=== PATIENT | female | born 1975 | race Two or more races ===

== ENCOUNTER 2018-02-24 09:36 | Emergency (ER) | payer BC ==
[~2018-02-24] VITALS: Ht 162.6 cm; Wt 72.6 kg
[~2018-02-24 09:36] MED LIST: PREN1TAB49 PO
[2018-02-24 09:40] VITALS: BP_SYST 156
[2018-02-24] MEDS ORDERED: ASPIRIN 325 MG TABLET PO ONE (09:45)
[2018-02-24] MEDS ORDERED: NITROGLYCERIN 0.4 MG TAB.SUBL SL ONE (09:45)
[2018-02-24 10:00] LABS: BASOPHILS % (AUTO) 0.6 % (0.0-2.0); EOSINOPHILS # (AUTO) 0.1 K/uL (0.0-0.4); EOSINOPHILS % (AUTO) 1.7 % (0.0-4.0); HEMATOCRIT 36.1 % (36-48); HEMOGLOBIN 12.6 g/dL (12.0-16.0); LYMPHOCYTES # (AUTO) 2.1 K/uL (1.0-5.5); LYMPHOCYTES % (AUTO) 28.8 % (20.5-51.5); MEAN CORPUSCULAR HEMOGLOBIN 32 pg (27-31); MEAN CORPUSCULAR HGB CONC 35 % (32-36); MEAN CORPUSCULAR VOLUME 92 fL (79.0-98.0); MONOCYTES # (AUTO) 0.5 K/uL (0.0-1.0); MONOCYTES % (AUTO) 6.5 % (1.7-9.3); NEUTROPHILS # (AUTO) 4.7 K/uL (1.8-7.7); NEUTROPHILS % (AUTO) 62.4 % (40.0-70.0); PLATELET COUNT (AUTO) 276 K/uL (130-430); RED BLOOD CELL COUNT(AUTO) 3.94 MIL/uL (4.2-6.2); RED CELL DISTRIBUTION WIDTH 12.1 % (9.0-15.0); WHITE BLOOD COUNT (AUTO) 7.4 K/uL (4.8-10.8)
[2018-02-24 10:11] LABS: CALCIUM 8.9 mg/dL (8.4-11.0); CREATININE 0.59 mg/dL (0.55-1.30); POTASSIUM 3.4 mmol/L (3.5-5.1)
[2018-02-24 10:11] LABS: BILIRUBIN,URINE NEGATIVE (NEGATIVE); BLOOD, URINE 2+ (NEGATIVE); CLARITY/URINE CLEAR (CLEAR); COLOR,URINE YELLOW (YELLOW); GLUCOSE,URINE NEGATIVE (NEGATIVE); KETONES,URINE NEGATIVE (NEGATIVE); LEUKOCYTE ESTERASE ,URINE TRACE (NEGATIVE); NITRITE, URINE NEGATIVE (NEGATIVE); PROTEIN URINE NEGATIVE (NEGATIVE); UROBILINOGEN,URINE 0.2 (0.2-1.0)
[2018-02-24 10:14] LABS: INR 1.1 (0.8-1.2); PROTHROMBIN TIME 11.1 SECS (9.5-12.5)
[2018-02-24 10:16] LABS: TOTAL BILIRUBIN 0.8 mg/dL (0.0-1.0)
[2018-02-24 10:17] LABS: ALBUMIN 3.6 g/dL (3.4-4.8)
[2018-02-24 10:18] LABS: BACTERIA,URINE FEW /HPF (None Seen); MUCUS,URINE 1+ /LPF (None Seen)
[2018-02-24] MEDS ORDERED: POTASSIUM CHLORIDE 10 MEQ TAB.PRT.SR PO ONE (10:45)
[2018-02-24 10:57] VITALS: BP_SYST 140
== END 2018-02-24 10:55 | disposition home or self-care (01) ==
LOC: SED 09:36
DX: F41.9 Anxiety disorder, unspecified (principal); R03.0 Elevated blood-pressure reading, without diagnosis of hypertension
CPT/HCPCS: 36415; 71045; 80053; 81000-TC; 81025; 82550-TC; 83880; 84484; 85025; 85379; 85610-TC; 85730-TC; 87086; 93005; 99285

== ENCOUNTER 2023-08-27 10:15 | Emergency (ER) | payer BC ==
[~2023-08-27] VITALS: Ht 162.6 cm; Wt 79.4 kg
[2023-08-27 10:31] VITALS: BP_SYST 170; PULSE 80; RESP 16; TEMP 97.8; O2SAT 97
[2023-08-27] MEDS ORDERED: TRAM50TA2 PO (12:13)
[2023-08-27 12:28] VITALS: BP_SYST 142; PULSE 85; RESP 21; TEMP 97.8; O2SAT 99
== END 2023-08-27 12:29 | disposition home or self-care (01) ==
LOC: SED 10:15
DX: M54.30 Sciatica, unspecified side (principal); M25.462 Effusion, left knee; Z79.899 Other long term (current) drug therapy
CPT/HCPCS: 93971; 99284

== ENCOUNTER 2024-04-16 10:12 | Emergency (ER) | payer BC ==
[~2024-04-16] VITALS: Ht 162.6 cm; Wt 79.4 kg
[2024-04-16 10:12] VITALS: BP_SYST 153; PULSE 92; RESP 18; TEMP 97.1; O2SAT 97
[~2024-04-16 10:12] MED LIST changes: +TRAM50TA2 PO
[2024-04-16] MEDS: BUPIVACAINE /PF 0.25% 30 ML VIAL INJ ONE (11:11)
[2024-04-16] MEDS ORDERED: METH-776 PO (11:28)
== END 2024-04-16 11:33 | disposition home or self-care (01) ==
LOC: SED 10:12
DX: M77.8 Other enthesopathies, not elsewhere classified (principal); M25.532 Pain in left wrist; R03.0 Elevated blood-pressure reading, without diagnosis of hypertension; Z79.899 Other long term (current) drug therapy; Z79.2 Long term (current) use of antibiotics
CPT/HCPCS: 64450; 99284; 73110; J3490